=== PATIENT | male | born 1975 | race African-American/Black ===

== ENCOUNTER 2019-06-05 01:06 | Emergency (ER) | payer MEDICAID, OTHER ==
[~2019-06-05] VITALS: Ht 185.4 cm; Wt 79.4 kg
[2019-06-05] MEDS ORDERED: Neosporin Oint Ud Pkt TOPIC ONE (01:15)
[2019-06-05] MEDS ORDERED: Lidocaine 1% 10mg/ml/Epi 0.005mg/ml 30ml vial INJ ONE (01:15)
--- NOTE | 2019-06-05 01:20 | Emergency Room Report ---
History of Present Illness General Chief Complaint: Multiple Trauma/Fall Source: Patient Present Illness HPI Patient has equilibrium problems. He fell and hit his head. He states he did not lose consciousness. He also remembers falling. Has ingested alcohol tonight. Says his tetanus is up-to-date. He was transported by paramedics. He rates the pain 9/10 and is nose and back of his head. Is fairly constant and sharp in the back of his head aching. No radiation. Patient status post neck and lower back surgery. Patient is disabled. He takes Marianna for chronic pain. He denies taking Marianna today. No fevers, chills, sore throat, chest pain, palpitations, nausea, vomiting, diarrhea, dysuria, abdominal pain, shortness of breath, depression, anxiety, visual changes. Allergies: Coded Allergies: MAYONNAISE (Verified Allergy, Unknown, 06/05/19) Patient History Past Medical History: see triage record Past Surgical History: other - neck and back surgery Social History: Reports: alcohol use Social History Narrative , born in [place], disabled Reviewed Nursing Documentation: PMH: Agreed; PSxH: Agreed Nursing Documentation-PMH Hx Neurological Problems: Yes - SPINAL FUSION Review of Systems All Other Systems: negative except mentioned in HPI Physical Exam Vital Signs Date Time Temp Pulse Resp B/P (MAP) Pulse Ox O2 Delivery O2 Flow Rate FiO2 06/05/19 00:59 98.4 105 18 146/90 (108) 98 Room Air Sp02 EP Interpretation: reviewed, normal General Appearance: well appearing, alert, GCS 15, non-toxic Head: normocephalic, other - hematoma L forehead Eyes: bilateral eye PERRL, bilateral eye EOMI, bilateral eye Scleral Injection ENT: other - superficial lac bridge of nose Neck: supple, no bony tend Respiratory: chest non-tender, lungs clear, normal breath sounds Cardiovascular #1: regular rate, rhythm Cardiovascular #2: 2+ radial (R) Gastrointestinal: normal inspection, normal bowel sounds, non tender, no mass, non-distended Musculoskeletal: back normal, gait/station normal, normal range of motion Neurologic: alert, oriented x3, records management specialist III-XII nml as tested, motor strength/tone normal, DTRs symmetric, sensory intact, speech normal Psychiatric: mood/affect normal Skin: laceration - occiput, abrasion - Bridge of nose Procedures Laceration/Wound Repair Laceration/Wound Repair : Consent: Verbal Wound Location: head Wound's Depth, Shape: superficial, linear, contused tissue Wound Length (cm): 3 Wound Explored: clean Irrigated w/ Saline (ccs): 10 Betadine Prep?: Yes Anesthesia: Lidocaine w/ Epi Wound Debrided: None Wound Repaired With: tony Layer Closure?: No Patient Tolerated: Well Complications: None Medical Decision Making Diagnostic Impression: Primary Impression: Head injury Qualified Codes: S09.90XA - Unspecified injury of head, initial encounter Additional Impressions: Occipital scalp laceration Qualified Codes: S01.01XA - Laceration without foreign body of scalp, initial encounter Facial contusion Qualified Codes: S00.83XA - Contusion of other part of head, initial encounter ER Course Patient presents post fall. Differential includes nasal fracture, brain bleed, contusion, laceration to scalp amongst others. Patient will be evaluated with CT of the head and maxillofacial bones. The neck is not tender at this time. He has a nonfocal neurologic exam and is not toxic. The laceration needs tony. Patient will be given a dose of Tylenol. CT head and maxillofacial without significant injury. Laceration repaired with tony. Tolerated well. Discussed observation and outpatient treatment plan with patient. Patient stable for outpatient observation and treatment. CT/MRI/US Diagnostic Results CT/MRI/US Diagnostic Results #1: Imaging Test Ordered: head Impression occipital swelling CT/MRI/US Diagnostic Results #2: Imaging Test Ordered: maxilofacial Impression nasal swelling Last Vital Signs Date Time Temp Pulse Resp B/P (MAP) Pulse Ox O2 Delivery O2 Flow Rate FiO2 06/05/19 04:00 98.4 18 146/90 98 Room Air 06/05/19 01:45 105 Status: improved Disposition: HOME, SELF-CARE Condition: Improved Scripts Bacitracin (Bacitracin) 28.4 Gm Oint...g. 1 APPLIC TOPIC BID, #15 GM Prov: Jack Padilla MD 06/05/19 Jack Padilla MD Jun 05, 2019 01:20
[2019-06-05 01:45] VITALS: BP 146/90
--- NOTE | 2019-06-05 01:49 | NUR ---
ED Nurse Note: Patient walked in to ER due to fall. Stated that fell at home, and hit his head on the wall. AAO x4, VSS at this time, skin is dry warm to touch. Patient presented with laceration on his posterior head.
--- NOTE | 2019-06-05 03:37 | Diagnostic Imaging Report ---
Indications: Trauma, hit for head and cheek one day ago from falling Technique: Spiral images obtained through the facial bones. No IV contrast utilized. Multiplanar reconstructions were generated.Total dose length product 723 mGycm. CTDIvol(s) 28 mGy. Dose reduction achieved using automated exposure control Comparison: none Findings: No acute fractures. No worrisome sinus air-fluid levels to suggest hemorrhage. There is some mucosal disease in the maxillary sinuses bilaterally. The optic globes and retroseptal orbits are intact. There is a small amount of soft tissue swelling in the left supraorbital region. There is evidence of loss of the left first maxillary incisor. Uncertain as to whether this is acute or remote. 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 Correlate with clinical history as regards acuity Other findings as noted This agrees with the preliminary interpretation provided overnight by [facility] teleradiology service. The CT scanner at [facility] is accredited by the [employer] and the scans are performed using protocols designed to limit radiation exposure to as low as reasonably achievable to attain images of sufficient resolution adequate for diagnostic evaluation.
--- NOTE | 2019-06-05 03:44 | Diagnostic Imaging Report ---
Indications: Fell one day ago. Right-sided head with laceration Technique: Spiral acquisitions obtained through the brain. Angled axial and coronal 5 x 5 mm slices were reconstructed. Total dose length product 1512.81 mGycm. CTDI vol(s) 70.38 mGy. Dose reduction achieved using automated exposure control Comparison: None. Findings: There is some soft tissue swelling in the high right parietal scalp region. There is also some left frontal scalp soft tissue swelling. There are skin tony in the low posterior parietal region centrally. No acute intracranial hemorrhage or edema, mass effect, nor midline shift. There is enlargement of the ventricles which is out of proportion to the degree of sulcal dilatation. Normal shine-white differentiation. The visualized orbits are unremarkable. The sinuses are clear. The calvarium is intact. Impression: Negative for acute intracranial bleed or mass effect. Ventriculomegaly. Probably on the basis of central volume loss but the possibility of hydrocephalus should be considered. Correlate with clinical history and findings, compared any prior exams available Multiple foci of scalp soft tissue injury, as described The CT scanner at [facility] is accredited by the [employer] and the scans are performed using protocols designed to limit radiation exposure to as low as reasonably achievable to attain images of sufficient resolution adequate for diagnostic evaluation.
[2019-06-05] MEDS ORDERED: BACITRACIN15 GM TOPIC (03:56)
[2019-06-05 04:00] VITALS: BP 146/90
--- NOTE | 2019-06-05 04:01 | NUR ---
ED Nurse Note: Pt cleared by health care Provider for discharge. DC instructions/prescription was given and explained to pt and verbalized understanding of teachings. All medical deviecs such as ID band removed. Pt is AAO x4, ambulatory and left with all personal belongings.
== END 2019-06-05 04:15 | disposition home or self-care (01) ==
LOC: EDBD 01:06 → EMR 01:10
DX: S01.01XA Laceration without foreign body of scalp, initial encounter (principal); S00.33XA Contusion of nose, initial encounter; G89.29 Other chronic pain; Z91.018 Allergy to other foods; Z98.1 Arthrodesis status; F10.10 Alcohol abuse, uncomplicated; W18.30XA Fall on same level, unspecified, initial encounter; Y92.9 Unspecified place or not applicable
CPT/HCPCS: 12002; 70450; 70486; 99284; Z7502

== ENCOUNTER 2019-06-10 22:23 | Emergency (ER) | payer MEDICAID ==
[~2019-06-10] VITALS: Ht 185.4 cm; Wt 80.7 kg
[~2019-06-10 22:23] MED LIST: BACITRACIN15 GM TOPIC
[2019-06-10 22:29] VITALS: BP 137/90
--- NOTE | 2019-06-10 22:29 | NUR ---
ED Nurse Note: Patient presents with intent to have tony removed.
--- NOTE | 2019-06-10 22:48 | Emergency Room Report ---
History of Present Illness General Chief Complaint: Wound Recheck/Suture Removal Source: Patient Present Illness HPI The patient was evaluated June 05 after a fall. He had a nasal contusion and required tony in the occiput. He has a history of unsteady gait due to neck and back surgery. He had been drinking that night. He states the wound is not bothering him. He denies fevers, chills, drainage from the wound. He denies headache at this time. His gait is been more steady without alcohol. Allergies: Coded Allergies: MAYONNAISE (Verified Allergy, Unknown, 06/05/19) Patient History Past Medical History: see triage record, old chart reviewed Past Surgical History: other - Neck and back surgery Social History: Reports: smoking, alcohol use Social History Narrative From home, disabled Reviewed Nursing Documentation: PMH: Agreed; PSxH: Agreed Nursing Documentation-PMH Past Medical History: No History, Except For Hx Neurological Problems: Yes - SPINAL FUSION Review of Systems Constitutional: Reports: see HPI Eye: Denies: blurred vision, double vision ENT: Reports: see HPI Musculoskeletal: Denies: joint pain Skin: Reports: see HPI Neurological: Reports: see HPI Physical Exam Vital Signs Date Time Temp Pulse Resp B/P (MAP) Pulse Ox O2 Delivery O2 Flow Rate FiO2 06/10/19 22:29 98.4 97 18 137/90 (106) 97 Sp02 EP Interpretation: reviewed, normal General Appearance: well appearing, no apparent distress, GCS 15, non-toxic Head: normocephalic Eyes: bilateral eye normal inspection, bilateral eye PERRL, bilateral eye EOMI ENT: moist mucus membranes Neck: full range of motion, no bony tend Respiratory: normal inspection Cardiovascular #1: regular rate, rhythm Cardiovascular #2: 2+ radial (R) Gastrointestinal: normal inspection Musculoskeletal: back normal, gait/station normal, normal range of motion Neurologic: alert, oriented x3, grossly normal Psychiatric: mood/affect normal Skin: wd healing/no infection noted Medical Decision Making Diagnostic Impression: Primary Impression: Removal of staple Additional Impression: Partial wound dehiscence ER Course Patient presents 6 days post tony and occiput post fall. He is insisting that tony be removed at this time. The wound is not infected at this time. I discussed that this was early for staple removal he is still insistent. Tony removed by me. Slight dehiscence of 1/2 cm on the left side of the wound. There is no drainage. This was reapproximated with Steri-Strips. Discussed this issue with the patient to understands. He also understands treatments plan. The wound should close by secondary intent. Patient stable for outpatient observation and treatment. Last Vital Signs Date Time Temp Pulse Resp B/P (MAP) Pulse Ox O2 Delivery O2 Flow Rate FiO2 06/10/19 22:56 98.4 82 18 137/90 97 Status: improved Disposition: HOME, SELF-CARE Condition: Improved Jack Padilla MD Jun 10, 2019 22:48
--- NOTE | 2019-06-10 22:48 | NUR ---
ED Nurse Note: ERMD at bedside, removing tony.
--- NOTE | 2019-06-10 22:55 | NUR ---
ER DISCHARGE NOTE: Patient is cleared to be discharged per ERMD, pt is aox4, on room air, with stable vital signs. pt was given dc instructions, pt was able to verbalize understanding, pt id band removed without complications. pt is able to ambulate with steady gait. pt took all belongings.
== END 2019-06-10 22:57 | disposition home or self-care (01) ==
LOC: EMR 22:54
DX: S01.01XD Laceration without foreign body of scalp, subsequent encounter (principal); T81.30XD Disruption of wound, unspecified, subsequent encounter; Z98.1 Arthrodesis status; Z48.02 Encounter for removal of sutures; Z91.018 Allergy to other foods; F17.200 Nicotine dependence, unspecified, uncomplicated; X58.XXXD Exposure to other specified factors, subsequent encounter
CPT/HCPCS: 99281